=== PATIENT | male | born 1975 | race Caucasian/White ===

== ENCOUNTER 2017-04-03 14:22 | Emergency (ER) | payer MEDICAID ==
[~2017-04-03] VITALS: Ht 180.3 cm; Wt 72.5 kg
[2017-04-03 14:35] VITALS: Ht 180.3 cm; Wt 72.5 kg
--- NOTE | 2017-04-03 15:29 | RADRPT ---
PROCEDURE: US Scrotum. CLINICAL INDICATION: Pain TECHNIQUE: Multiple sonographic images of the scrotal region were obtained utilizing a linear arra y transducer with grayscale and color-flow and a Doppler imaging. The images were reviewed on a high -resolution PACS workstation. COMPARISON: No prior studies are available for comparison. FINDINGS: The right testicle is normal in size. There are multiple tiny calcifications in the testicle. The r ight testicle measures measures 4.4 x 2.0 x 3.1 cm. There is normal color-flow. The right epididymis is visualized and unremarkable in appearance. There is normal color-flow. The left testicle is normal in size. There are multiple tiny calcifications in the testicle. The l eft testicle measures measures 3.9 x 2.7 x 3.0 cm. There is slightly increased color-flow. The left epididymis is visualized with a 4 mm simple cyst. There is normal color-flow. There is a large left hydrocele. RPTAT: AA IMPRESSION: Slightly increased vascularity of the left testicle with a large left hydrocele, consistent with lef t orchitis. Multiple tiny calcifications in the testicles, consistent with testicle microlithiasis. Tiny simple cyst in the left epididymis. .Christian Harris MD, Date Time Electronically viewed and signed by .Christian Harris MD, MD on 04/03/2017 15:29 .S/
[2017-04-03 15:48] LABS: URINE BLOOD (Dip) POC Negative (NEGATIVE)
[2017-04-03] MEDS ORDERED: IBUP-1542 PO (16:08)
[2017-04-03] MEDS ORDERED: DOXY100T20 PO (16:08)
--- NOTE | 2017-04-03 16:13 | ERD ---
ER Documentation Chief Complaint Date/Time DATE: 04/03/17 TIME: 16:11 Chief Complaint 1 year with teste pain HPI This 41-year-old male complains of 1 year history of intermittent left testicle pain. He was seen over a year ago in [facility] and had normal results. Did not improve with antibiotics. Some mild pain which is increased over the last week. He denies fevers, vomiting, penile discharge or dysuria. He denies any history of trauma. ROS All systems reviewed and are negative except as per history of present illness. Medications Home Meds Active Scripts Ibuprofen* (Motrin*) 600 Mg Tab, 600 MG PO Q6, #15 TAB Prov:HARMONY YANES MD 04/03/17 Doxycycline Hyclate* (Doxycycline Hyclate*) 100 Mg Tablet.dr, 100 MG PO BID for 10 Days, TAB Prov:HARMONY YANES MD 04/03/17 Allergies Allergies: Coded Allergies: No Known Allergy (Unverified , 04/03/17) PMhx/Soc History of Surgery: Yes (wrist surgery) Anesthesia Reaction: No Hx Neurological Disorder: No Hx Respiratory Disorders: No Hx Cardiac Disorders: No Hx Psychiatric Problems: No Hx Miscellaneous Medical Probl: No Hx Alcohol Use: No Hx Substance Use: Yes (marijuana) Hx Tobacco Use: No Smoking Status: Never smoker Physical Exam Vitals Vital Signs Date Time Temp Pulse Resp B/P Pulse Ox O2 Delivery O2 Flow Rate FiO2 04/03/17 14:35 98.6 91 18 126/72 97 Physical Exam Const: [], [id number] per Head: Atraumatic Eyes: Normal Conjunctiva ENT: Normal External Ears, Nose and Mouth. Neck: Full range of motion..~ No meningismus. Resp: Clear to auscultation bilaterally Cardio: Regular rate and rhythm, no murmurs Abd: Soft, non tender, non distended. Normal bowel sounds. General exam shows a large left testicle which is minimally tender. No appreciable hernias, erythema, discharge. Skin: No petechiae or rashes Back: No midline or flank tenderness Ext: No cyanosis, or edema Neur: Awake and alert Psych: Normal Mood and Affect Results 24 hrs Laboratory Tests Test 04/03/17 15:52 Bedside Urine pH (LAB) 7.0 Bedside Urine Protein (LAB) Negative Bedside Urine Glucose (UA) Negative Bedside Urine Ketones (LAB) Negative Bedside Urine Blood Negative Bedside Urine Nitrite (LAB) Negative Bedside Urine Leukocyte Esterase (L Negative Procedures/MDM Urine is negative for sent for culture. The scrotal ultrasound shows left- sided hydrocele with some mild increased flow consistent with orchitis. No dominant masses or signs of torsion. Patient presents with chronic left testicle pain which is intermittently better and worse and slightly worse over the last week. There is no evidence of torsion, abscess, acute abdomen additional acute scrotal emergencies. Does have a hydrocele which may be the cause of the pain although there are signs of orchitis no treated with doxycycline for this. Urine was sent for gonorrhea chlamydia. Patient was referred to urology for further evaluation treatment. He should return for new or worsening symptoms with urology and or primary care directed Departure Diagnosis: Primary Impression: Pain in testicle Condition: Stable Patient Instructions: Hydrocele, Type Not Specified, Orchitis Referrals: TIM GUERRA MD TOYIN,PHUC Almanzar MD Additional Instructions: Mild signs of orchitis which we will treat with for infection but symptoms may be due to hydrocele. See urology for further evaluation treatment return for fevers, worsening redness, pain, new symptoms HARMONY YANES MD Apr 03, 2017 16:13
== END 2017-04-03 16:21 | disposition home or self-care (01) ==
LOC: FTE 14:22
DX: N50.812 Left testicular pain (principal)
CPT/HCPCS: 76870; 81003; 87591